=== PATIENT | male | born 1960 | race Caucasian/White ===

== ENCOUNTER → 2023-04-30 10:05 | Outpatient (CLI) | payer BC, SELFPAY ==
--- NOTE | 2023-04-30 | DI.RAD.S_ITS ---
PROCEDURE: XR LUMBAR SPINE 2-3V INDICATIONS: Arthrodesis status TECHNIQUE: 3 views of the lumbar spine were acquired. COMPARISON: None. FINDINGS: Bones: 5 [id number] vertebrae are present. L5-S1 posterior fusion hardware with bilateral transpedicular screws and interbody disc spacer is intact with no perihardware lucency to suggest hardware loosening. Mild straightening of the normal lumbar lordosis with slight levoconvex curvature with apex at L3. Moderate disc height loss at L5-S1. Remainder of the disc spaces are maintained. No vertebral body compression fractures. No suspicious bony lesions. Soft tissues: Overlying bowel gas pattern is normal. No suspicious soft tissue calcifications. IMPRESSION: 1. L5-S1 posterior fusion hardware is intact without complication. 2. Mild straightening of the normal lumbar lordosis with slight levoconvex curvature with apex at L3. Dictated by: Apple Rivera M.D. on 04/30/2023 at 18:32 Approved by: Apple Rivera M.D. on 04/30/2023 at 18:35
== END ==
PROVIDERS: Referring Provider Massage Therapist; Visit Provider Massage Therapist
DX: Z98.1 Arthrodesis status (principal); Z09 Encounter for follow-up examination after completed treatment for conditions other than malignant neoplasm
CPT/HCPCS: 72100

== ENCOUNTER → 2024-06-30 07:23 | Outpatient (CLI) | payer BC, SELFPAY ==
--- NOTE | 2024-06-30 07:24 | DI.ECHO.S_ITS ---
[facility] : : [id number] : : [place] : : [id number] : : Phone: [phone] Echocardiogram Report + + :Name: RAFIQ ANDRADE Study Date: 06/30/2024 Height: 71 in : :[facility] ReadingLocation: Weight: 185 lb : : Gender: Male BSA: 2.0 m2 : :: 1960 Age: 63 yrs BP: 114/84 mmHg: :Reason For Study: ISCHEMIC CARDIOMYOPATHY : :Ordering Physician: NEELAM, : :NADINE Flowers Performed By: Byron Williamson : :Referring: NADINE CHANDLER : + + Interpretation Summary The left ventricle is mildly dilated. The ejection fraction is estimated to be 20-25%. There is severe hypo to akinesis of the mid to distal anterior, mid to distal anteroseptal, distal anterolateral, distal inferolateral, distal inferior and entire apical bowden. Grade I diastolic dysfunction. The right ventricle is mildly dilated. The right ventricular systolic function is normal. There is mild to moderate mitral regurgitation. Pulmonary artery pressures cannot be estimated because of the lack of a measurable TR jet velocity but the IVC suggests a CVP of around 3 mmHg. Procedure: A two-dimensional transthoracic echocardiogram with color flow and Doppler was performed. The study quality was technically good. There is no prior echocardiogram noted for this patient. The patient was in normal sinus rhythm during the exam. Left Ventricle: The left ventricle is mildly dilated. There is normal left ventricular wall thickness. There is no ventricular septal defect visualized. The ejection fraction is estimated to be 20-25%. There is severe hypo to akinesis of the mid to distal anterior, mid to distal anteroseptal, distal anterolateral, distal inferolateral, distal inferior and entire apical bowden. Diastolic parameters suggest a relaxation abnormality of the left ventricle, consistent with probable normal filling pressures. Right Ventricle: The right ventricle is mildly dilated. The right ventricular systolic function is normal. Atria: Both atria are normal in size. There is no Doppler evidence for an atrial septal defect. Mitral Valve: The mitral valve leaflets appear normal. There is no evidence of stenosis, fluttering, or prolapse. There is mild to moderate mitral regurgitation. Aortic Valve: The aortic valve is trileaflet. The aortic valve opens well. There is no aortic valve stenosis. No aortic regurgitation is present. Tricuspid Valve: The tricuspid valve leaflets are thin and pliable. There is trace tricuspid regurgitation. Pulmonary artery pressures cannot be estimated because of the lack of a measurable TR jet velocity but the IVC suggests a CVP of around 3 mmHg. Pulmonic Valve: The pulmonic valve is not well seen, but is grossly normal. There is mild pulmonic regurgitation. Great Vessels: The aortic root is normal size. The dimensions of the ascending aorta are normal. The pulmonary artery is normal size. The IVC is of normal diameter and collapses greater than 50% with a sniff. This suggests a low right atrial pressure of 3 mm Hg. Pericardium/ Pleura There is no pericardial effusion. There is no pleural effusion. MMode/2D Measurements & Calculations LVIDd: 5.9 cm LVOT diam: 1.9 cm LVIDs: 5.1 cm Ao root diam: 3.3 cm FS: 13.5 % asc Aorta Diam: 3.0 cm EPSS: 1.5 cm Ao Arch Diam (Prox Trans): 1.9 cm IVSd: 0.90 cm LVPWd: 0.87 cm LV dumont. diameter/BSA (cm/m^2): 2.9 LV sys. diameter/BSA (cm/m^2): 2.5 LA A2 area: 19.1 cm2 RA long axis: 5.5 cm LA A4 area: 21.2 cm2 RA area: 19.6 cm2 LA length (vol): 5.6 cm RA vol: 59.6 ml LA vol: 61.5 ml RA : 29.2 ml/m2 LA vol index: 30.1 ml/m2 IVC diam: 1.4 cm RVD1 (basal): 4.3 cm RVD2 (mid): 3.4 cm TAPSE: 2.4 cm Doppler Measurements & Calculations Ao V2 max: 120.3 cm/sec LVOT Max Durga: 93.6 cm/sec Ao V2 mean: 84.4 cm/sec LV V1 max P.5 mmHg Ao max P.8 mmHg LV V1 VTI: 18.6 cm Ao mean P.2 mmHg MONA(I,D): 2.3 cm2 Ao V2 VTI: 24.1 cm MONA(V,D): 2.3 cm2 sev ratio: 0.77 MONA indexed to BSA (cm^2/m^2): 1.1 MV E max durga: 56.0 cm/sec TR max durga: 229.0 cm/sec MV A max durga: 44.2 cm/sec TR max P.7 mmHg MV E/A: 1.3 PA V2 max: 68.9 cm/sec Med Peak E' Durga: 6.3 cm/sec PA V2 mean: 52.0 cm/sec E/E' med: 8.8 PA mean P.2 mmHg Lat Peak E' Durga: 5.2 cm/sec PA pr(Accel): 19.1 mmHg E/E' lat: 10.7 E/e' average: 9.8 MV dec time: 0.18 sec SV(LVOT): 55.2 ml Reading Physician:01:[id number] PM
--- NOTE | 2024-07-01 17:51 | DI.NM.S_ITS ---
DATE OF SERVICE: 06/30/2024 NUCLEAR CARDIOLOGY MYOCARDIAL PERFUSION STUDY PROCEDURE PERFORMED: Exercise treadmill stress and rest myocardial perfusion imaging with gating to assess ejection fraction and regional wall motion. ORDERING PROVIDER: Nadine Chandler M.D. INDICATIONS: The patient is a 63-year-old male with previous anterior STEMI from an occluded LAD with resultant ischemic cardiomyopathy. CARDIAC STRESS: The patient was able to exercise for 8 minutes 36 seconds on a standard Yves protocol suggesting fair exercise capacity with an RAJIV of -8%, achieving 10.1 METS. He had a normal heart rate and blood pressure response to exercise, achieving a maximum heart rate of 142 bpm (91% of his predicted maximum). He had no chest discomfort or other anginal symptoms beyond moderate exertional dyspnea. His resting ECG shows anterior Q-waves consistent with previous anterior infarction, but normal ST segments. With stress, there are no significant ST-segment shifts. There were no arrhythmias. At 7 minutes 21 seconds of exercise at a heart rate of 138 bpm, 25.1 millicuries of technetium-99m Myoview was injected and he was imaged 15 minutes later using a gated SPECT acquisition protocol. The following day while at rest, he was injected with 25.3 millicuries of technetium-99m Myoview and was imaged 15 minutes later, again using a gated SPECT acquisition protocol. FINDINGS: 1. Raw data. There is fairly good myocardial tracer uptake, but obvious left ventricular enlargement. The lung/heart ratio is normal at 0.32 with a normal TID ratio of 0.91. 2. Quantitated gated SPECT: Post-stress ejection fraction is 37% with moderate global hypokinesis, but clearly worse in the mid to distal anterior wall extending to and including the apex and the very distal periapical segments. The resting ejection fraction is 43% with an identical contraction pattern with severely increased volumes with an end-diastolic volume of 210 mL. 3. Myocardial perfusion imaging: Post-stress supine images show a moderate perfusion defect in the mid anterior wall and anterior septum, becoming a severe perfusion defect in the distal anterior wall, septum, apex, and periapical segments. This defect persists unchanged on the prone images. The resting images also show an identical perfusion pattern without any areas of improvement. IMPRESSION: 1. Abnormal myocardial perfusion study. 2. Severe, fixed perfusion defect involving the mid and distal anterior wall, septum, apex, and periapical segments consistent with previous transmural infarction in the left anterior descending distribution but without any significant ischemia. 3. Moderate-severe left ventricular enlargement with moderately reduced left ventricular systolic function with moderate global hypokinesis, but worse in the mid and distal septum, apex, and periapical segments, consistent with LAD distribution infarction. 4. Fair exercise capacity without angina or ECG evidence of ischemia. There was no significant ectopy. Jimenez Henriquez - RS/chelly/MARII doc#: [id number]/job#: [id number] dd: 07/01/2024 17:21:00 dt: 07/01/2024 17:30:00 DICTATING MD/COPIES TO: Sahil Gonzalez MD; Nadine Chandler M.D. COPIES MNE: ANDREAS;
== END ==
PROVIDERS: PCP Nurse Practitioner Family; Referring Provider Internal Medicine Cardiovascular Disease; Visit Provider Internal Medicine Cardiovascular Disease
DX: I25.5 Ischemic cardiomyopathy (principal); I25.118 Atherosclerotic heart disease of native coronary artery with other forms of angina pectoris; I34.0 Nonrheumatic mitral (valve) insufficiency; I25.2 Old myocardial infarction; R94.39 Abnormal result of other cardiovascular function study; I37.1 Nonrheumatic pulmonary valve insufficiency
CPT/HCPCS: 78452; 93017; 93306; A9502

== ENCOUNTER → 2024-09-06 19:41 | Outpatient (CLI) | payer BC, SELFPAY ==
--- NOTE | 2024-09-06 19:44 | DI.MRI.S_ITS ---
PROCEDURE: MR WRIST LT WO CON INDICATIONS: tendinopathy of left wrist TECHNIQUE: Noncontrast coronal proton density fast spin echo and T2 fast spin echo with fat saturation; coronal 3-D gradient echo, axial T1 spin echo and T2 fast spin echo with fat saturation, sagittal T1 spin echo through the wrist. COMPARISON: [facility], CR, XR HAND 3+ VIEWS BILATERAL, 05/07/2023, 15:41. FINDINGS: Image quality: Excellent. Bones: Status post trapeziectomy, there are subchondral cysts of the base of the 1st metacarpal (5/7). Mild marrow edema and subchondral cysts are present at the articulating surfaces of the pisotriquetral articulation (/16; 5/9). Mild subchondral cyst formation is also present at the ulnar styloid process in association with positive ulnar variance posture (5/9). The bone marrow signal is otherwise normal. There is no evidence of acute fracture or carpal bone osteonecrosis. There is a type 1 lunate. Joints: There is mild-moderate osteoarthritis at the residual triscaphe joint and modified 1st CMC joint. There is moderate pisotriquetral osteoarthritis with a small joint effusion (/). There is a small amount of fluid at the distal radioulnar joint. A small amount of fluid at the pre styloid recess with synovial proliferation (5/10). There is no significant fluid within the radiocarpal joint or midcarpal space. Intrinsic Ligaments: The scapholunate and lunotriquetral intervals are normal. The intrinsic scapholunate and lunotriquetral ligaments are normal. Extrinsic Ligaments: The extrinsic ligaments are normal. Triangular Fibrocartilage Complex: There is a full-thickness, partial width tear of the ulnotriquetral ligament (5/8). The triangular fibrocartilage disc proper, distal dorsal and volar radioulnar ligaments, ulnar collateral ligament/meniscal homologue, ulnotriquetral, and ulnolunate ligaments are otherwise normal. Tendons: There is mild thickening and intermediate signal of the flexor carpi ulnaris tendon as it approaches the triquetral attachment (03/05-). The flexor and extensor tendons are otherwise normal. Nerves: The median and ulnar nerves appear normal in size and signal. Other: No other acute abnormality. IMPRESSION: 1. 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 2. Mild flexor carpi ulnaris tendinosis. 3. Full-thickness, partial width tear of the ulnotriquetral ligament with mild synovitis at the pre styloid recess, possibly secondary to positive ulnar variance posture. 4. Mild-moderate osteoarthritis at the residual triscaphe and modified 1st CMC joints. Dictated by: Malcolm Flor M.D. on 09/08/2024 at 16:36 Approved by: Malcolm Flor M.D. on 09/08/2024 at 16:59
== END ==
LOC: MRI 19:42
PROVIDERS: PCP Nurse Practitioner Family; Referring Provider Orthopaedic Surgery; Visit Provider Orthopaedic Surgery
DX: S63.592A Other specified sprain of left wrist, initial encounter (principal); M19.032 Primary osteoarthritis, left wrist; M18.12 Unilateral primary osteoarthritis of first carpometacarpal joint, left hand; M24.132 Other articular cartilage disorders, left wrist; M65.932 Unspecified synovitis and tenosynovitis, left forearm; M25.432 Effusion, left wrist
CPT/HCPCS: 73221